=== PATIENT | male | born 1945 | race Caucasian/White ===

== ENCOUNTER → 2016-10-07 | Outpatient (CLI) | payer OTHER ==
[~2016-10-07] MED LIST: ACET-1256 PO; ACETTAB19 PO; ASPI81TA28 PO; B-CO1CAP5 PO; DOXA2TAB PO; FLAX12003 PO; FLEC50TA20 PO; METO25TA3 PO; MRP1 PO; OMEG10007 PO; PANT40TA PO; PRAV80TA2 PO
--- NOTE | 2016-10-07 09:41 | DIAGNOSTIC IMAGING REPORT ---
CERVICAL SPINE 5 VIEWS HISTORY: CERVICALGIA M54.2 COMPARISON: None. FINDINGS: The cervical spine is visualized from C1 through the superior endplate of T1. There is no fracture. No subluxation. Mild disc space narrowing at C4-C5. Moderate disc space narrowing and small endplate osteophytes at C5-C6 and C6-C7. Prevertebral soft tissues and the atlantodens interval are intact. IMPRESSION: 1. Mild to moderate degenerative disc disease within the mid to lower cervical spine. 2. No fracture or subluxation. Electronically signed by: Bony Wu M.D. 10/07/2016 9:39 AM Dictated Date/Time: 10/07/2016 9:35 AM
== END | disposition home or self-care (01) ==
LOC: C.RAD 08:37
PROVIDERS: ATTEND Family Medicine
DX: M54.2 Cervicalgia (principal)

== ENCOUNTER → 2017-08-31 | Outpatient (CLI) | payer OTHER | END | disposition home or self-care (01) | LOC: C.RDSM 10:55 | PROVIDERS: ATTEND Orthopaedic Surgery | DX: R52 Pain, unspecified (principal) ==

== ENCOUNTER → 2017-09-22 | Outpatient (CLI) | payer OTHER | END | disposition home or self-care (01) | LOC: C.PATHSPEC 17:15 | PROVIDERS: ATTEND Urology | DX: N40.1 Benign prostatic hyperplasia with lower urinary tract symptoms (principal); T19.9XXA Foreign body in genitourinary tract, part unspecified, initial encounter; X58.XXXA Exposure to other specified factors, initial encounter; N28.1 Cyst of kidney, acquired; N30.20 Other chronic cystitis without hematuria ==

== ENCOUNTER → 2017-09-30 | Outpatient (CLI) | payer OTHER ==
[~2017-09-30] MED LIST changes: -METO25TA3 PO; +METO25TA4 PO
--- NOTE | 2017-09-30 09:37 | DIAGNOSTIC IMAGING REPORT ---
ABD/PELVIS COMBO HISTORY: 72 years-old Male N40.1 Benign prostatic hyperplasia with urinary [id number] COMPARISON: CT chest 07/19/2016 TECHNIQUE: Multiple axial CT images of the abdomen and pelvis were obtained both with and without the use of 93 mL Optiray 320. Delayed postcontrast excretory phase images were also process. A dose lowering technique was used consistent with the principals of OSMIN. FINDINGS: There are multiple soft tissue attenuating solid nodules of the left lung base, largest of which measures 1.4 x 1.7 cm within the lingula abutting the fissure with adjacent nodules measuring up to 8 mm, also abutting the adjacent major fissure. These findings are unchanged from comparison study 07/19/2016. The imaged inferior cardiac chambers are unremarkable. There is no pneumatosis or pneumoperitoneum identified. 11 mm ovoid low attenuating lesion of the subserosal left hepatic lobe suggests hepatic cyst. Similar-appearing 5 mm lesion is seen within the posterior right hepatic lobe, too small to characterize however may also reflect a hepatic cyst. There is no intrahepatic biliary ductal dilation. Splenule's are again noted adjacent to the spleen. There is a soft tissue attenuating lobulated structure measuring 7.5 x 4.8 cm within the left upper abdomen interposed between the left hepatic lobe and spleen suggesting splenic tissue. Pancreas, gallbladder and adrenal glands are within normal limits. Mild nonspecific bilateral perinephric stranding. 5.9 x 5.0 cm cyst of the interpolar left kidney is noted. There is a lobulated 3.2 x 2.2 cm cystic lesion of the anterior inferior pole right kidney demonstrating thin internal septations as noted on image 181 series 5 which appear to enhance. Additional low attenuating lesions of the right kidney are seen suggesting cysts, many of which are too small to characterize. There is a 1.1 x 1.3 x 1.5 cm solid enhancing lesion of the anterior aspect interpolar right kidney as seen on image 175 series 5. No additional suspicious renal mass lesions are seen on either side. 5 mm calculus of the interpolar right kidney with additional nonobstructing punctate calculus of the superior pole right kidney. 6 mm hyperattenuating cyst of the posterior inferior pole right kidney. There is no ureteral calculi or obstructive uropathy identified. Prostate is enlarged. Soft tissue attenuation of the base of the urinary bladder suggests prostatic tissue. Mild circumferential wall thickening of the urinary bladder. No filling defects within the collecting systems or ureters. The majority of the distal left ureter is not well opacified. Aorta is normal in course and caliber moderate atherosclerotic plaquing. No bulky adenopathy identified. Small sliding-type hiatal hernia. No bowel obstruction or focal bowel wall thickening. Mild colonic diverticulosis without CT evidence of acute diverticulitis. Visualized appendix appears normal. Prior bilateral inguinal hernia repair. Soft tissues are unremarkable. Indeterminate 1.3 cm sclerotic focus of the left iliac wing on image 290 likely reflecting bone island. IMPRESSION: 1. 1.5 cm solidly enhancing lesion of the anterior interpolar right kidney . Renal cell carcinoma is the diagnosis of exclusion. 2. Bilateral renal cysts. 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 6 month follow-up recommended to further dilate. 3. Nonobstructing right-sided nephrolithiasis. No ureteral calculi or obstructive uropathy. 4. Prostamegaly with evidence of chronic bladder obstruction. Some tissue attenuation of the base of the urinary bladder suggests prostatic tissue and could be correlated with cystoscopy if of further clinical concern. 5. Splenic tissue of the left upper abdomen suggesting accessory spleen, large splenule or polysplenia again noted within the left upper abdomen with unchanged left basilar pulmonary nodules, also possibly reflecting splenic tissue. 6. Additional findings as above. The above report was generated using voice recognition software. It may contain grammatical, syntax or spelling errors. Electronically signed by: Hector Montana M.D. 09/30/2017 9:35 AM Dictated Date/Time: 09/30/2017 9:16 AM
== END | disposition home or self-care (01) ==
LOC: C.CTS 08:03
PROVIDERS: ATTEND Urology
DX: N40.1 Benign prostatic hyperplasia with lower urinary tract symptoms (principal); T19.9XXA Foreign body in genitourinary tract, part unspecified, initial encounter; N28.1 Cyst of kidney, acquired; N20.0 Calculus of kidney; X58.XXXA Exposure to other specified factors, initial encounter

== ENCOUNTER → 2017-10-20 | Outpatient (CLI) | payer OTHER ==
--- NOTE | 2017-10-20 07:52 | DIAGNOSTIC IMAGING REPORT ---
(CHEST) THORAX WITHOUT CT DOSE: 510.56 mGycm CLINICAL HISTORY: 72 years-old Male with N28.89 Renal mass, [id number]. Follow-up study in a patient with renal mass and pulmonary nodules TECHNIQUE: Multiaxial CT images of the chest were performed without contrast. A dose lowering technique was utilized adhering to the principles of ALARA. COMPARISON: CT abdomen and pelvis 09/30/2017, CT chest 07/19/2016 FINDINGS: Mildly heterogeneous thyroid with a 1.4 center low attenuating left thyroid nodule. Lobulated soft tissue attenuation containing internal calcifications again noted within the anterior mediastinum measuring up to 3.8 x 1.9 cm, previously 3.8 x 1.8 cm. No new adenopathy of the chest. The heart is within normal limits. Coronary arterial disease. No aortic aneurysm. There is no pneumothorax or pleural effusion. Mild left hemidiaphragmatic elevation redemonstrated. No lobar airspace consolidation to suggest pneumonia. No new pulmonary nodules identified. Unchanged circumscribed lobulated soft tissue attenuating nodules of the lingula, several which abuts the major fissure are again seen, largest measuring up to 1.6 cm which are unchanged from comparison studies dating back to 07/19/2016. Lobulated 7.9 cm soft tissue attenuating lesion of the left upper abdomen demonstrating same density as adjacent splenic tissue is again noted which appears unchanged. Low attenuating lesions of the kidneys are again seen including a probable cyst of the interpolar left kidney, 5.7 cm. Calculi of the interpolar right kidney are again noted. 10 mm probable cyst of the left hepatic lobe. Contracted gallbladder. Soft tissues demonstrate no acute abnormality. The bones appear intact. Multilevel degenerative changes of the spine. 3.5 cm intramuscular lipoma of the left latissimus musculature noted. IMPRESSION: 1. No acute intrathoracic abnormality identified. 2. Soft tissue lesion of the left upper abdomen again noted suggesting accessory spleen, large splenule or polysplenia with unchanged multiple solid nodules of the left lung base, also suggesting accessory splenic tissue. No new or enlarging pulmonary nodules identified. 3. Lobular partially calcified lesion of the anterior mediastinum appears unchanged from comparison measuring up to 3.8 cm. Differential considerations would include a thymic epithelial lesion, germ cell tumor or treated lymphoma. Electronically signed by: Hector Montana M.D. 10/20/2017 7:51 AM Dictated Date/Time: 10/20/2017 7:40 AM
== END | disposition home or self-care (01) ==
LOC: C.CTS 07:17
PROVIDERS: ATTEND Urology
DX: N28.89 Other specified disorders of kidney and ureter (principal)

== ENCOUNTER → 2017-11-22 | Outpatient (CLI) | payer OTHER ==
[2017-11-22 12:08] LABS: HEMATOCRIT 41.6 % (42-52); HEMOGLOBIN 14.9 g/dL (14.0-18.0); IG# 0.01 K/uL (0.00-0.02); LYMPH % 34.2 %; LYMPH ABS # 1.96 K/uL (1.2-3.4); MEAN CELL VOLUME 85.4 fL (80-100); MEAN CORPUSCULAR HEMOGLOBIN 30.6 pg (25-34); MEAN CORPUSCULAR HGB CONC 35.8 g/dl (32-36); MEAN PLATELET VOLUME 9.8 fL (7.4-10.4); MONO % 5.8 %; MONO ABS # 0.33 K/uL (0.11-0.59); NEUT % 59.8 %; NEUT ABS # 3.43 K/uL (1.4-6.5); PLATELET COUNT 168 K/uL (130-400); RED CELL DISTRIBUTION WIDTH CV 12.8 % (11.5-14.5); RED CELL DISTRIBUTION WIDTH SD 39.8 fL (36.4-46.3); WHITE BLOOD COUNT 5.73 K/uL (4.8-10.8)
[2017-11-22 12:38] LABS: ALBUMIN 4.1 gm/dl (3.4-5.0); ALT/SGPT 35 U/L (12-78); AST/SGOT 22 U/L (15-37); BLOOD UREA NITROGEN 18 mg/dl (7-18); CALCIUM 9.2 mg/dl (8.5-10.1); CARBON DIOXIDE 26 mmol/L (21-32); GLUCOSE 94 mg/dl (70-99); POTASSIUM 4.1 mmol/L (3.5-5.1); SODIUM 137 mmol/L (136-145)
[2017-11-22 12:43] LABS: ALKALINE PHOSPHATASE 88 U/L (45-117); TOTAL PROTEIN 7.6 gm/dl (6.4-8.2)
== END | disposition home or self-care (01) ==
LOC: C.LAB1850 10:34
PROVIDERS: ATTEND Internal Medicine Nephrology
DX: I48.91 Unspecified atrial fibrillation (principal); N28.1 Cyst of kidney, acquired; N28.89 Other specified disorders of kidney and ureter

== ENCOUNTER → 2017-11-23 | Outpatient (CLI) | payer OTHER ==
--- NOTE | 2017-11-23 09:38 | DIAGNOSTIC IMAGING REPORT ---
RENAL ULTRASOUND CLINICAL HISTORY: Right renal mass. Renal cyst. COMPARISON STUDY: CT of the abdomen and pelvis October 10, 2017. TECHNIQUE: Sonography of the kidneys and the urinary bladder was performed. FINDINGS: The right kidney measures 11 cm in maximal dimension and the left measures 11.4 cm. There is no hydronephrosis. Note is made of a 5.7 cm cyst within the midpole of the left kidney. Note is made of a 3 cm cystic lesion within the lower pole of the right kidney with peripheral hypoechoic focus which corresponds to the complex cystic lesion shown on CT of October 10, 2017. This remains indeterminate. The suspicious 1.5 cm enhancing midpole lesion within the right kidney shown on CT is not evident on since exam, likely due to technique. A few additional renal cysts are noted. No abnormality of the bladder was identified by sonography. IMPRESSION: 1. Nonvisualization of the 1.5 cm right mid pole renal lesion shown on CT of September 30, 2017, likely due to sonographic technique. The appearance on prior CT is highly suggestive of renal cell carcinoma. 2. 3 cm mildly complicated cyst within lower pole of the right kidney which is better depicted on prior CT. This was considered a Bosniak 2F renal cyst and a follow-up CT in March 2018 is recommended to ensure stability. 3. No hydronephrosis. Electronically signed by: Daquan Wong M.D. 11/23/2017 9:36 AM Dictated Date/Time: 11/23/2017 9:11 AM
== END | disposition home or self-care (01) ==
LOC: C.ULTR 08:29
PROVIDERS: ATTEND Internal Medicine Nephrology
DX: N28.1 Cyst of kidney, acquired (principal); N28.89 Other specified disorders of kidney and ureter; I48.91 Unspecified atrial fibrillation

== ENCOUNTER 2017-12-19 05:03 | Inpatient (IN) | payer OTHER ==
--- NOTE | 2017-12-08 07:34 | DIAGNOSTIC IMAGING REPORT ---
CHEST 2 VIEWS ROUTINE CLINICAL HISTORY: N28.89 Renal mass, preoperative chest, occasional shortness of breath and cough. COMPARISON STUDY: 12/01/2015 FINDINGS: There is mild elevation/eventration of the left hemidiaphragm. The heart is normal in size. There is no failure. There is no focal pulmonary consolidation. There are no pleural effusions. Anterior mediastinal calcifications are visualized in the lateral view. These were described in the prior CT scan dated 10/20/2017.[ IMPRESSION: Stable anterior mediastinal calcifications. No acute findings. Electronically signed by: Eddi Mena M.D. 12/08/2017 7:33 AM Dictated Date/Time: 12/08/2017 7:31 AM
[2017-12-19] VITALS (16 sets, daily range): BP systolic 122–161; BP diastolic 71–90; PULSE 61–71; TEMP 36.6–37.2; O2SAT 94–98; Ht 172.7 cm; Wt 91.0 kg
[~2017-12-19] VITALS: Ht 172.7 cm; Wt 91.0 kg
[~2017-12-19 05:03] MED LIST changes: -ACETTAB19 PO; +ASPI-391 PO; +BCTCR/30 EXT; +DICL1GEL12 TP; -DOXA2TAB PO; +FINA5TAB PO; -FLAX12003 PO; +TAMS0.4C38 PO; +TRMO2580 TOP
[2017-12-19] MEDS ORDERED: LACTATED RINGER'S 1000ML 1,000 ML IV SCH (06:00)
[2017-12-19] MEDS ORDERED: CEFAZOLIN 2000MG IV PUSH 15 ML IV SCH (06:00)
[2017-12-19] MEDS ORDERED: BUPIVACAINE 0.5 % 5 MG/1 ML MPF 30ML VIAL ONE (06:31)
[2017-12-19] MEDS ORDERED: ONDANSETRON INJ 2 MG/ML 2 ML VIAL ONE (06:36)
[2017-12-19] MEDS ORDERED: NEOSTIGMINE METHYLSULFATE 5 MG/5 ML SYR ONE (06:36)
[2017-12-19] MEDS ORDERED: GLYCOPYRROLATE INJ 0.2 MG/ML VIAL ONE (06:36)
[2017-12-19] MEDS ORDERED: LIDOCAINE HCL 2% 2 ML VIAL (20MG/ML) ONE (06:36)
[2017-12-19] MEDS ORDERED: DEXAMETHASONE SOD INJ 4 MG/ML VIAL ONE (06:36)
[2017-12-19] MEDS ORDERED: PROPOFOL IV EMULSION 10 MG/ML 20 ML VIAL ONE (06:36)
[2017-12-19] MEDS ORDERED: MIDAZOLAM HCL 1 MG/ML 2ML VIAL ONE (06:37)
[2017-12-19] MEDS ORDERED: FENTANYL CITRATE INJ 50 MCG/1 ML 2 ML VIAL ONE (06:37)
--- NOTE | 2017-12-19 06:45 | History & Physical Bridge Note ---
H&P Re-Evaluation Bridge Note: I have examined the patient, reviewed the History & Physical and in the interval since the performance of the History & Physical I have noted the following changes of clinical significance: No changes noted
[2017-12-19] MEDS ORDERED: HYDROmorphone INJ 2 MG/ML SYR/VIAL ONE (08:27)
[2017-12-19] MEDS ORDERED: EpHEDrine SULFATE INJ 50 MG/ML AMP IV PRN (08:30)
[2017-12-19] MEDS ORDERED: MoRPHine SULFATE 10 MG/ML CARP/VIAL IV PRN (08:30)
[2017-12-19] MEDS ORDERED: ATROPINE SULFATE 0.1 MG/ML 5ML SYR IV PRN (08:30)
[2017-12-19] MEDS ORDERED: ONDANSETRON INJ 2 MG/ML 2 ML VIAL IV PRN (08:30)
[2017-12-19] MEDS ORDERED: EpHEDrine SULFATE 50MG/5ML SYR ONE (08:53)
[2017-12-19] MEDS ORDERED: ROCURONIUM BROMIDE 10 MG/ML 5 ML VIAL ONE (08:53)
[2017-12-19] MEDS ORDERED: TISSEEL FIBRIN SEALANT 10ML TOP ONE (09:29)
--- NOTE | 2017-12-19 10:08 | [facility] Post Operative Brief Note ---
Immediate Operative Summary Operative Date Dec 19, 2017. Pre-Operative Diagnosis Right Renal Mass Post-Operative Diagnosis Right Renal Mass Procedure(s) Performed Laparoscopic Right Hand Assisted Nephrectomy Surgeon Dr. Anthony Ge[employer] Prospecting Permit Agent Surgeon(s) Brittanie Bangura NP Estimated Blood Loss 100 ml Findings Consistent with Post-Op Diagnosis Specimens A. Right Kidney and Mass Anesthesia Type General Complication(s) none Disposition Disposition: Recovery Room / PACU
[2017-12-19] MEDS ORDERED: TRIAMCINOLONE ACETONIDE TOP PRN (10:30)
[2017-12-19] MEDS ORDERED: MUPIROCIN 2% EXT PRN (10:30)
[2017-12-19] MEDS ORDERED: DICLOFENAC SOD 1% GEL 100 GM TUBE EXT PRN (10:30)
[2017-12-19] MEDS ORDERED: CEFAZOLIN IV 2,000 MG in DEXTROSE 5% 50ML 50 ML IV SCH (10:30)
[2017-12-19] MEDS: FENTANYL CITRATE INJ 50 MCG/1 ML 2 ML VIAL IV PRN ×4 (10:33→10:53)
[2017-12-19 10:57] LABS: HEMATOCRIT 41.6 % (42-52); HEMOGLOBIN 14.9 g/dL (14.0-18.0); MEAN CELL VOLUME 86.5 fL (80-100); MEAN PLATELET VOLUME 9.5 fL (7.4-10.4); PLATELET COUNT 149 K/uL (130-400); RED CELL DISTRIBUTION WIDTH CV 12.7 % (11.5-14.5); RED CELL DISTRIBUTION WIDTH SD 40.7 fL (36.4-46.3); WHITE BLOOD COUNT 11.56 K/uL (4.8-10.8)
[2017-12-19 11:00] LABS: MEAN CORPUSCULAR HGB CONC 35.8 g/dl (32-36)
[2017-12-19 11:16] LABS: CALCIUM 8.5 mg/dl (8.5-10.1); CREATININE 1.18 mg/dl (0.60-1.40); POTASSIUM 3.8 mmol/L (3.5-5.1)
--- NOTE | 2017-12-19 11:18 | Anesthesiology Progress Note ---
Anesthesia Post Op Note Date & Time Dec 19, 2017 at 11:18 Vital Signs Pain Intensity: 2 Vital Signs Past 12 Hours Date Time Temp Pulse Resp B/P (MAP) Pulse Ox O2 Delivery O2 Flow Rate FiO2 12/19/17 11:11 133/62 12/19/17 11:10 54 13 12/19/17 11:10 54 13 97 12/19/17 11:06 125/62 12/19/17 11:05 60 13 96 12/19/17 11:05 61 13 12/19/17 11:02 37.0 58 16 122/65 (85) 98 Nasal Cannula 2 12/19/17 11:01 122/65 12/19/17 11:00 59 11 97 12/19/17 11:00 59 11 12/19/17 10:59 118/65 12/19/17 10:55 60 12 12/19/17 10:55 61 12 99 12/19/17 10:54 54 11 97 12/19/17 10:54 54 11 97 12/19/17 10:54 49 11 12/19/17 10:54 49 11 12/19/17 10:51 133/69 12/19/17 10:51 133/69 12/19/17 10:49 56 12 99 12/19/17 10:49 53 12 12/19/17 10:49 53 12 12/19/17 10:49 56 12 99 12/19/17 10:48 53 10 99 12/19/17 10:48 53 10 12/19/17 10:46 140/78 12/19/17 10:43 56 13 12/19/17 10:43 55 13 98 12/19/17 10:41 132/75 12/19/17 10:38 57 17 12/19/17 10:38 57 17 100 12/19/17 10:36 158/78 12/19/17 10:33 52 9 12/19/17 10:33 55 9 100 12/19/17 10:31 138/100 12/19/17 10:28 55 17 99 12/19/17 10:28 54 17 12/19/17 10:27 161/71 12/19/17 10:24 148/82 12/19/17 10:23 57 17 12/19/17 10:23 36.5 57 16 148/82 (114) 97 Oxymask 10 12/19/17 10:23 59 17 98 12/19/17 05:44 98 Room Air 12/19/17 05:38 36.6 63 20 161/83 Notes Mental Status: alert / awake / arousable, participated in evaluation Pt Amnestic to Procedure: Yes Nausea / Vomiting: adequately controlled Pain: adequately controlled Airway Patency, RR, SpO2: stable & adequate BP & HR: stable & adequate Hydration State: stable & adequate Anesthetic Complications: no major complications apparent
[2017-12-19] MEDS ORDERED: ACETAMINOPHEN 500 MG TAB PO PRN (13:30)
[2017-12-19] MEDS: HYDROmorphone INJ 2 MG/ML SYR/VIAL IV PRN (13:33)
[2017-12-19] MEDS: LACTATED RINGER'S 1000ML 1,000 ML IV SCH ×2 (13:37→21:25)
[2017-12-19] MEDS: ACETAMINOPHEN 500 MG TAB PO SCH ×2 (14:06→19:25)
--- NOTE | 2017-12-19 14:22 | [facility] Operative Report ---
Operative Report Operative Date Dec 19, 2017. Pre-Operative Diagnosis Right Renal Mass. Right Complex Renal Cysts Post-Operative Diagnosis Same Procedure(s) Performed Radical Hand Assist Right Nephrectomy Surgeon Gino Vector Control Specialist Surgeon(s) EVA Bangura Estimated Blood Loss 100 Findings Kidney with multiple lesions including solid suspicious mass Specimens Radical Right Nephrectomy Drains None Anesthesia Type General Complication(s) none Disposition Recovery Room / PACU Indications Patient found to have solid suspicious renal mass with two complex renal cysts. Discussed options and risks and benefits. Patient has previous history of significant trauma. Patient agrees to proceed. Description of Procedure The patient was brought to the operative suite and placed under general endotracheal intubation anesthesia in the supine position. The patient was transferred to the lateral position. At this point, the patient prepped and draped in the usual sterile fashion and a timeout was completed. Preoperative antibiotics of Ancef 2 grams had been given. FLOYD's and SCD's were placed on the patient's lower extremities. A catheter had been placed using sterile technique prior to draping. With the time out completed the patient was marked and a Veress needle was placed to insufflate the abdomen. Prior to connecting the gas, the needle was aspirated and flushed. No blood or other fluid or concern were noted. The Abdomen was insufflated with low pressure CO2 with out issues to 12 mmHg. The skin was anesthetized and an incision was made at the skin. The camera port was placed and the peritoneum was entered. A camera was placed. The abdominal cavity inspected. No concerning features were noted. Great care was taken to inspect the entire abdomen. No significant scar tissues or major adhesions were found. At this point, the skin was marked for additional port placement. A howe incision was planned in the lower quadrant approximately 6 cm in length. The skin was anesthetized down to fascia and an incision was made. The subcutaneous tissues were dissected with cautery. The fascia was examined and opened and the muscle fibers parted. The Peritoneum was then entered. The Gel Port was selected and placed to allow hand assistance. The abdomen was then resufflated. The marked ports were then anesthetized at the skin level. The 12 mm working port and 5 mm port were placed under direct visualization. Brittanie Bangura was integral in port placement, camera utilization, and the major jorgensen portions of the procedure. She remained in sterile attire and then proceeded to assist the remainder of the case. Dr. Stevenson Moreira was readily available for assistance during jorgensen portions of the proceeding procedure. At this point, the right colon was mobilized medially and the retroperitoneum entered. A harmonic device was used for the majority of instrument dissection. The liver was dissected free from some minor attachments to the peritoneum. A grasper was placed for liver retraction. Attention was then taken back to the inferior portion of the retroperitoneum. With the colon safely retracted, the ureter and gonadal vein was identified. The ureter was isolated and dissection was taken towards the hilum. The gonadal vein was and taken to its junction with the vena cava. The Renal vein and artery were identified at the hilum. It was noted that the renal artery branched into three larger branches. These branches were identified. The hilum was fully dissected and exposed. The vessels were isolated and a 45mm stapling device with a vascular load was selected. This was taken to the hilum and the hilum was fully isolated and stapled. The device was removed and the renal artery and vein were assessed. No bleeding or other areas of concern were noted. Some small posterior attachments were then freed with the harmonic device. The kidney was further mobilize after opening the anterior peritoneum over the kidney. The kidney was retracted inferiorly. The adrenal was spared and the kidney freed on the superior, posterior, and lateral with Gerota fascia maintained. The ureter was followed down into the pelvis. The tissue was freed and the 45 stapler was used to transect the ureter and the surrounding retroperitoneal fat. The kidney was grasped and removed through the hand port. This was sent for pathologic analysis after quick inspection. The entire dissection bed was inspected.Hemostatic agent was placed in the region of the hilar attachments. No bleeding or areas of concern were found. The vein and artery stump was found to be without issues. No areas of injury or bleeding was noted. The entire area was inspected after placement of the hemostatic agents. The liver was inspected and found to be clear of issues. The entire dissection space was inspected one final time. No bleeding or injuries or areas of concern were noted. No masses, lesions, tumor, enlarged nodes, or other concerning features were noted. The port sites were all assessed laparoscopically. The 10 mm and 12 mm ports were removed and closed with the Scott-Branch device and a 2-0 Vicryl suture. The skin was closed with a running Monocryl suture. The gel port was removed. All counts for needles, instruments, sponges, and equipment were correct x 2. A 1-0 Vicryl suture was used to close the peritoneum in a running fashion. The internal oblique fascia was closed with a running 1-0 Vicryl suture. A running 1-0 PDS suture was used to close the external oblique fascia up to the rectus sheath. The skin at each site was closed with a running Monocryl suture. The area was cleaned and glue placed on each incision. The patient was cleaned and bandaged. The patient was moved into the supine position and further cleaned, aroused from anesthesia, and transferred to the pacu in stable condition having tolerated the procedure well with no complications. I was present and participated in all aspects of the procedure. Counts were correct x 2 at the end of the procedure. The patient will be monitored in the PACU until transferred. Will be admitted to be monitored after the procedure. Will follow closely. I attest to the content of the Intraoperative Record and any orders documented therein. Any exceptions are noted below.
[2017-12-19] MEDS: CEFAZOLIN IV 2,000 MG in SYRINGE 0 ML IV SCH ×2 (15:16→23:57)
[2017-12-19] MEDS: OXYCODONE/ACETAMINOPHEN 7.5-325 TAB PO PRN ×2 (17:25→21:22)
[2017-12-19] MEDS: DOCUSATE SODIUM 100 MG CAP PO SCH (21:15)
[2017-12-19] MEDS: TAMSULOSIN HCL 0.4 MG CAP PO SCH (21:16)
[2017-12-19] MEDS: FLECAINIDE ACETATE 100 MG TAB PO SCH (21:17)
[2017-12-19] MEDS: FINASTERIDE 5 MG TAB PO SCH (21:17)
[2017-12-19] MEDS: PRAMIPEXOLE DIHYDROCHLORIDE 0.5 MG TAB PO SCH (21:17)
[2017-12-19] MEDS: PANTOprazole SOD 40 MG TAB PO SCH (21:17)
[2017-12-19] MEDS: PRAVASTATIN SOD 40 MG TAB PO SCH (21:17)
[2017-12-19] MEDS: METOPROLOL SUCC 25MG EXT REL TAB PO SCH (21:18)
[2017-12-19] MEDS: ONDANSETRON INJ 2 MG/ML 2 ML VIAL IV PRN (21:22)
[2017-12-20] VITALS (7 sets, daily range): BP systolic 103–153; BP diastolic 64–83; PULSE 50–68; TEMP 36.5–37.3; O2SAT 92–97
[2017-12-20] MEDS: OXYCODONE/ACETAMINOPHEN 7.5-325 TAB PO PRN ×3 (01:10→20:02)
[2017-12-20] MEDS: ACETAMINOPHEN 500 MG TAB PO SCH ×4 (01:13→20:00)
[2017-12-20] MEDS: HYDROmorphone INJ 2 MG/ML SYR/VIAL IV PRN ×2 (03:29→11:01)
[2017-12-20] MEDS: LACTATED RINGER'S 1000ML 1,000 ML IV SCH ×3 (05:01→22:44)
[2017-12-20 07:05] LABS: HEMATOCRIT 36.4 % (42-52); HEMOGLOBIN 12.5 g/dL (14.0-18.0); IG# 0.02 K/uL (0.00-0.02); LYMPH ABS # 1.51 K/uL (1.2-3.4); MEAN CELL VOLUME 87.9 fL (80-100); MEAN CORPUSCULAR HEMOGLOBIN 30.2 pg (25-34); MEAN CORPUSCULAR HGB CONC 34.3 g/dl (32-36); MEAN PLATELET VOLUME 9.6 fL (7.4-10.4); MONO % 9.1 %; MONO ABS # 0.81 K/uL (0.11-0.59); NEUT % 73.7 %; NEUT ABS # 6.56 K/uL (1.4-6.5); PLATELET COUNT 155 K/uL (130-400); RED CELL DISTRIBUTION WIDTH CV 13.1 % (11.5-14.5); RED CELL DISTRIBUTION WIDTH SD 42.5 fL (36.4-46.3)
--- NOTE | 2017-12-20 07:29 | DIAGNOSTIC IMAGING REPORT ---
KUB CLINICAL HISTORY: 72 years-old Male presenting with Post-op. TECHNIQUE: Single supine view of the abdomen was obtained. COMPARISON: CT from 09/30/2017. FINDINGS: Mild gaseous distention of stomach and large bowel. No convincing evidence of bowel obstruction. Pneumoperitoneum suggested in the right upper quadrant, which is likely expected in the postoperative setting. Allowing for bowel gas and stool, no calcifications to suggest nephrolithiasis. Few coil surgical alanis evident in the pelvis likely indicating prior hernia repair. Mild degenerative change in the lower lumbar spine. Left basilar opacity. IMPRESSION: 1. Suggestion of pneumoperitoneum, which is expected in the postoperative setting. No bowel obstruction. Mild gaseous distention of bowel may indicate colonic ileus. Electronically signed by: Arturo Scott M.D. 12/20/2017 7:28 AM Dictated Date/Time: 12/20/2017 7:24 AM
--- NOTE | 2017-12-20 07:32 | Anesthesiology Progress Note ---
Anesthesia Post Op Note Date & Time December 20, 2017 at 07:32 Vital Signs Pain Intensity: 3 Vital Signs Past 12 Hours Date Time Temp Pulse Resp B/P (MAP) Pulse Ox O2 Delivery O2 Flow Rate FiO2 12/20/17 07:08 36.5 50 16 127/75 (92) 97 2.0 12/20/17 04:00 Nasal Cannula 2.0 12/20/17 03:41 36.9 56 18 131/76 (94) 95 2.0 12/20/17 00:10 37.3 54 18 103/72 (82) 93 12/19/17 23:59 Nasal Cannula 2.0 12/19/17 20:03 95 Nasal Cannula 2.0 Notes Mental Status: alert / awake / arousable Pt Amnestic to Procedure: Yes Nausea / Vomiting: improving with treatment Pain: adequately controlled Airway Patency, RR, SpO2: stable & adequate BP & HR: stable & adequate Hydration State: stable & adequate
[2017-12-20 07:41] LABS: CALCIUM 8.1 mg/dl (8.5-10.1); CREATININE 1.66 mg/dl (0.60-1.40); POTASSIUM 3.9 mmol/L (3.5-5.1)
[2017-12-20] MEDS: CEFAZOLIN IV 2,000 MG in SYRINGE 0 ML IV SCH (07:59)
[2017-12-20] MEDS: DOCUSATE SODIUM 100 MG CAP PO SCH ×2 (08:00→20:39)
[2017-12-20] MEDS: PANTOprazole SOD 40 MG TAB PO SCH ×2 (08:00→20:39)
[2017-12-20] MEDS: FLECAINIDE ACETATE 100 MG TAB PO SCH ×2 (08:00→20:42)
[2017-12-20] MEDS: ONDANSETRON INJ 2 MG/ML 2 ML VIAL IV PRN (11:45)
--- NOTE | 2017-12-20 12:26 | Clinical Documentation Query ---
CLINICAL DOCUMENTATION QUERY Dr. WEBB, In your clinical opinion is this patient being managed for: ( ) Acute kidney injury ( ) Not Agree ( ) Other explanation of clinical findings (Please Explain. If no explanation given, this would be considered a no response.) ( ) Unable to determine ( ) Need to Discuss (Please call CDS via extension or qliq. If no interaction occurs this is considered a no response.) The medical record reflects the following clinical findings, treatment, and risk factors. Clinical Indicators: 72 yo male presenting with R renal mass and renal cyst. Baseline Cr 1.18 which has trended up to Cr 1.66 Treatment: IV fluids, serial PRP's Risk Factors: nephrectomy Please clarify and document your clinical opinion in the progress notes and discharge summary. Terms such as "probable", "suspected", "likely", "questionable", "possible", or "still to be ruled out" are acceptable. IF IN AGREEMENT, YOU MUST DOCUMENT ABOVE DIAGNOSTIC STATEMENT IN DAILY PROGRESS NOTES AND DISCHARGE SUMMARY. This document is not part of the patient's record. Thank You, Sofi Alford, RN [phone]
--- NOTE | 2017-12-20 13:42 | Progress Note ---
Subjective Date of Service: December 20, 2017. Subjective Pt evaluation today including: conversation w/ patient, chart review, lab review 72 yo male s/p right HALN. Pt reports some incisional pain and nausea this morning. Denies vomiting. Tolerating clear liquids. + belching. Denies flatus or BM. KUB this morning showing some gaseous distention. Jaramillo catheter removed 45min ago. Pt has not yet voided. I&Os acceptable. H&H 12.5 and 36.4 this morning. Cr is 1.66. Problem List Medical Problems: (1) Atrial fibrillation Status: Acute Review of Systems Constitutional: No fever, No chills Respiratory: No shortness of breath Cardiac: No chest pain Abdomen: + see HPI, + pain, + nausea, No vomiting Male : No hematuria Heme: No abnormal bleeding/bruising Objective Vital Signs Date Time Temp Pulse Resp B/P (MAP) Pulse Ox O2 Delivery O2 Flow Rate FiO2 12/20/17 12:13 37.0 68 18 129/64 (85) 96 12/20/17 12:00 Room Air 12/20/17 08:00 Room Air 12/20/17 07:08 36.5 50 16 127/75 (92) 97 2.0 12/20/17 04:00 Nasal Cannula 2.0 12/20/17 03:41 36.9 56 18 131/76 (94) 95 2.0 12/20/17 00:10 37.3 54 18 103/72 (82) 93 12/19/17 23:59 Nasal Cannula 2.0 12/19/17 20:03 95 Nasal Cannula 2.0 12/19/17 19:16 37.2 66 18 140/71 (94) 95 2.0 12/19/17 17:00 36.6 66 20 154/77 (102) 97 Nasal Cannula 2.0 12/19/17 16:19 95 Nasal Cannula 2.0 12/19/17 16:00 36.7 68 18 144/79 (100) 94 Nasal Cannula 2.0 12/19/17 15:00 66 20 129/74 (92) 95 Nasal Cannula 2.0 12/19/17 14:30 65 20 122/71 (88) 94 Nasal Cannula 2.0 12/19/17 14:00 68 20 137/80 (99) 96 Nasal Cannula 2.0 Physical Exam General Appearance: no apparent distress Eyes: normal inspection ENT: hearing grossly normal Neck: no JVD Respiratory/Chest: no respiratory distress, no accessory muscle use Cardiovascular: no JVD Abdomen: + pertinent finding (abdominal incisions c/d/i) Extremities: normal inspection Neurologic/Psychiatric: alert, normal mood/affect, oriented x 3 Skin: normal color Laboratory Results Last 24 Hours Test 12/20/17 06:30 White Blood Count 8.90 K/uL Red Blood Count 4.14 M/uL Hemoglobin 12.5 g/dL Hematocrit 36.4 % Mean Corpuscular Volume 87.9 fL Mean Corpuscular Hemoglobin 30.2 pg Mean Corpuscular Hemoglobin Concent 34.3 g/dl Platelet Count 155 K/uL Mean Platelet Volume 9.6 fL Neutrophils (%) (Auto) 73.7 % Lymphocytes (%) (Auto) 17.0 % Monocytes (%) (Auto) 9.1 % Eosinophils (%) (Auto) 0.0 % Basophils (%) (Auto) 0.0 % Neutrophils # (Auto) 6.56 K/uL Lymphocytes # (Auto) 1.51 K/uL Monocytes # (Auto) 0.81 K/uL Eosinophils # (Auto) 0.00 K/uL Basophils # (Auto) 0.00 K/uL RDW Standard Deviation 42.5 fL RDW Coefficient of Variation 13.1 % Immature Granulocyte % (Auto) 0.2 % Immature Granulocyte # (Auto) 0.02 K/uL Sodium Level 137 mmol/L Potassium Level 3.9 mmol/L Chloride Level 105 mmol/L Carbon Dioxide Level 26 mmol/L Anion Gap 6.0 mmol/L Blood Urea Nitrogen 17 mg/dl Creatinine 1.66 mg/dl Est Creatinine Clear Calc Drug Dose 44.7 ml/min Estimated GFR () 47.3 Estimated GFR (Non- 40.9 BUN/Creatinine Ratio 10.0 Random Glucose 115 mg/dl Calcium Level 8.1 mg/dl Assessment and Plan POD #1 s/p right HALN. AFVSS. Pt clinically stable. No cardiac events overnight. Will transfer to med/surg. TOV in process. Advance to a mechanical soft diet as tolerated for dinner. Encourage use of IS. Encourage ambulation to hallway. Possible d/c home tomorrow if tolerating PO, ambulating without difficulty, labs stable, and pain controlled.
[2017-12-20] MEDS ORDERED: CLC100 PO ×2 (13:44→13:58)
[2017-12-20] MEDS ORDERED: OXYC7.5T62 PO ×2 (13:44→13:58)
--- NOTE | 2017-12-20 13:45 | Discharge Instructions ---
Discharge Instructions Date of Service December 20, 2017. Admission Reason for Admission: Renal Mass,N28.9,N28.89 Discharge Discharge Diagnosis / Problem: Right renal mass Discharge Goals Goal(s): Decrease discomfort, Increase independence, Improve disease control, Improve nutritional status, Therapeutic intervention Activity Recommendations Activity Limitations: per Instructions/Follow-up section Shower/Bathe: tomorrow 1. Do not lift >15lbs x 6 weeks. 2. No heavy exercise x 6 weeks. You may engage in light activity such as walking and stairs as tolerated. 3. Do not drive x [address] while taking narcotics. 4. Follow-up as scheduled. Please call our office at [phone] if you need to reschedule for any reason. 5. You may resume taking Fish Oil and Excedrin in 10 days. . . Current Hospital Diet Patient's current hospital diet: Regular Diet Discharge Diet Recommended Diet: Regular Diet Procedures Procedures Performed: Radical Hand Assist Right Nephrectomy Pending Studies Studies pending at discharge: yes List of pending studies: right kidney pathology Medical Emergencies . Who to Call and When: Medical Emergencies: If at any time you feel your situation is an emergency, please call 911 immediately. . Non-Emergent Contact Non-Emergency issues call your: Urologist Call Non-Emergent contact if: temperature is above 101.5, your pain is not controlled, your pain is worsening, your pain is unusual for you, your pain is concerning you, wound has increased drainage, wound has increased redness, wound has increased pain, you have any medication questions . . "Provider Documentation" section prepared by Brittanie Bangura. . [place] Drug Monitoring Program Search Results: patient reviewed within database, no issues identified
[2017-12-20] MEDS: METOPROLOL SUCC 25MG EXT REL TAB PO SCH (20:39)
[2017-12-20] MEDS: PRAMIPEXOLE DIHYDROCHLORIDE 0.5 MG TAB PO SCH (20:40)
[2017-12-20] MEDS: PRAVASTATIN SOD 40 MG TAB PO SCH (20:41)
[2017-12-20] MEDS: FINASTERIDE 5 MG TAB PO SCH (20:41)
[2017-12-20] MEDS: TAMSULOSIN HCL 0.4 MG CAP PO SCH (20:41)
[2017-12-21] MEDS: OXYCODONE/ACETAMINOPHEN 7.5-325 TAB PO PRN (01:11)
[2017-12-21] MEDS: ACETAMINOPHEN 500 MG TAB PO SCH ×2 (01:25→07:16)
[2017-12-21] MEDS: LACTATED RINGER'S 1000ML 1,000 ML IV SCH ×2 (05:17→13:30)
[2017-12-21 07:25] LABS: BASO % 0.1 %; BASO ABS # 0.01 K/uL (0-0.2); HEMATOCRIT 36.3 % (42-52); HEMOGLOBIN 12.9 g/dL (14.0-18.0); IG# 0.01 K/uL (0.00-0.02); LYMPH % 18.8 %; LYMPH ABS # 1.54 K/uL (1.2-3.4); MEAN CELL VOLUME 88.1 fL (80-100); MEAN CORPUSCULAR HEMOGLOBIN 31.3 pg (25-34); MEAN CORPUSCULAR HGB CONC 35.5 g/dl (32-36); MEAN PLATELET VOLUME 9.5 fL (7.4-10.4); MONO % 6.9 %; MONO ABS # 0.57 K/uL (0.11-0.59); NEUT % 74.1 %; NEUT ABS # 6.08 K/uL (1.4-6.5); PLATELET COUNT 124 K/uL (130-400); RED CELL DISTRIBUTION WIDTH CV 12.8 % (11.5-14.5); RED CELL DISTRIBUTION WIDTH SD 41.3 fL (36.4-46.3); WHITE BLOOD COUNT 8.21 K/uL (4.8-10.8)
[2017-12-21 07:53] LABS: CALCIUM 8.2 mg/dl (8.5-10.1); CREATININE 1.58 mg/dl (0.60-1.40); POTASSIUM 3.7 mmol/L (3.5-5.1)
[2017-12-21 08:06] VITALS: BP 156/82; PULSE 60; TEMP 37; O2SAT 93
--- NOTE | 2017-12-21 08:27 | Progress Note ---
Subjective Date of Service: December 21, 2017. Subjective Pt evaluation today including: conversation w/ patient, physical exam, chart review, lab review, review of studies Pain: Tolerated Doing well. Ambulating. Pain controlled. Tolerating diet. IV heplocked. NO major issues. Jaramillo removed and patient voiding. NO major concerns. Problem List Medical Problems: (1) Atrial fibrillation Status: Acute Review of Systems All Other Systems: Reviewed and Negative Objective Vital Signs Date Time Temp Pulse Resp B/P (MAP) Pulse Ox O2 Delivery O2 Flow Rate FiO2 12/21/17 08:06 37.0 60 18 156/82 (106) 93 Room Air 12/20/17 23:30 36.7 62 16 147/75 (99) 92 Room Air 12/20/17 23:26 Room Air 12/20/17 20:38 52 92 Room Air 12/20/17 16:00 Room Air 12/20/17 15:30 36.9 51 18 153/83 (106) 92 Room Air 12/20/17 12:13 37.0 68 18 129/64 (85) 96 12/20/17 12:00 Room Air Physical Exam General Appearance: WD/WN, no apparent distress Eyes: normal inspection ENT: normal ENT inspection Neck: no JVD Respiratory/Chest: no respiratory distress, no accessory muscle use Cardiovascular: regular rate, rhythm Abdomen: soft (Wound: Clean, dry, intact. ), + distended Extremities: normal range of motion, non-tender, normal inspection, no pedal edema, no calf tenderness Neurologic/Psychiatric: asparagus buncher II-XII nml as tested, no motor/sensory deficits, alert, normal mood/affect, oriented x 3 Skin: normal color, warm/dry, no rash Lymphatic: no adenopathy Laboratory Results Last 24 Hours Test 12/21/17 06:59 White Blood Count 8.21 K/uL Red Blood Count 4.12 M/uL Hemoglobin 12.9 g/dL Hematocrit 36.3 % Mean Corpuscular Volume 88.1 fL Mean Corpuscular Hemoglobin 31.3 pg Mean Corpuscular Hemoglobin Concent 35.5 g/dl Platelet Count 124 K/uL Mean Platelet Volume 9.5 fL Neutrophils (%) (Auto) 74.1 % Lymphocytes (%) (Auto) 18.8 % Monocytes (%) (Auto) 6.9 % Eosinophils (%) (Auto) 0.0 % Basophils (%) (Auto) 0.1 % Neutrophils # (Auto) 6.08 K/uL Lymphocytes # (Auto) 1.54 K/uL Monocytes # (Auto) 0.57 K/uL Eosinophils # (Auto) 0.00 K/uL Basophils # (Auto) 0.01 K/uL RDW Standard Deviation 41.3 fL RDW Coefficient of Variation 12.8 % Immature Granulocyte % (Auto) 0.1 % Immature Granulocyte # (Auto) 0.01 K/uL Sodium Level 137 mmol/L Potassium Level 3.7 mmol/L Chloride Level 103 mmol/L Carbon Dioxide Level 29 mmol/L Anion Gap 5.0 mmol/L Blood Urea Nitrogen 16 mg/dl Creatinine 1.58 mg/dl Est Creatinine Clear Calc Drug Dose 47.0 ml/min Estimated GFR () 50.3 Estimated GFR (Non- 43.4 BUN/Creatinine Ratio 10.0 Random Glucose 102 mg/dl Calcium Level 8.2 mg/dl Assessment and Plan 1. POD2 s/p Radical Right Nephrectomy (Lap hand assist) 2. LC on CKD with solitary kidney Patient ambulating. Doing well. No major issues. Using IS. NO pain control issues. Voiding without problems. Tolerating diet. Dicussed post op care and discharge planning.
--- NOTE | 2017-12-21 08:30 | Discharge Summary ---
Discharge Summary Date of Service December 21, 2017. Admission Date/Reason Dec 19, 2017 at 10:26 Renal Mass,N28.9,N28.89. Discharge Date/Disposition December 21, 2017 Home Diagnosis Principal Diagnosis: 1. Right Renal Mass Secondary Diagnoses/Problems: 1. A Fib 2. LC on CKD Procedure(s) Performed Radical Right Hand Assist Laparoscopic Nephrectomy. Medication Reconciliation See List Admission Physical Exam As per Admitting History & Physical. Hospital Course Patient was admitted and underwent Radical nephrectomy. Tolerated the procedure well without issues or complications. Postoperatively patient was started on diet and observed. Increased activity. Ambulated without issues. NO major issues or concerns. Jaramillo removed POD1. Was able to void late in day on POD1. Increased diet. Improved overall. On POD2 patient now ambulating. Tolerating diet. Pain is controlled on oral medications. Ready for discharge with close follow up and plans in place. Discharge Instructions Please refer to the electronic Patient Visit Report (Discharge Instructions) for additional information.
[2017-12-21 08:49] VITALS: O2SAT 93
[2017-12-21 09:11] VITALS: BP 156/82; PULSE 60; TEMP 37; O2SAT 93
[2017-12-21] MEDS: PANTOprazole SOD 40 MG TAB PO SCH (09:41)
[2017-12-21] MEDS: DOCUSATE SODIUM 100 MG CAP PO SCH (09:41)
[2017-12-21] MEDS: FLECAINIDE ACETATE 100 MG TAB PO SCH (09:41)
== END 2017-12-21 13:50 | disposition home or self-care (01) | DRG 660 ==
LOC: C.ACU 05:03 → C.2T 10:26 → ENRESERV 11:50 → C.MSW 12-20 15:52
PROVIDERS: ADMIT Urology; ATTEND Urology
PROC: 0TT00ZZ Resection of Right Kidney, Open Approach (ICD-10-PCS; principal; 2017-12-19 07:00)
DX: N28.89 Other specified disorders of kidney and ureter (principal); Q61.02 Congenital multiple renal cysts; I48.91 Unspecified atrial fibrillation; N17.9 Acute kidney failure, unspecified; N18.9 Chronic kidney disease, unspecified; K21.9 Gastro-esophageal reflux disease without esophagitis; E78.5 Hyperlipidemia, unspecified; N40.0 Benign prostatic hyperplasia without lower urinary tract symptoms; G25.81 Restless legs syndrome; L40.9 Psoriasis, unspecified; M19.90 Unspecified osteoarthritis, unspecified site; G47.33 Obstructive sleep apnea (adult) (pediatric); E66.9 Obesity, unspecified; Z68.30 Body mass index [BMI] 30.0-30.9, adult; Z99.89 Dependence on other enabling machines and devices; Z87.891 Personal history of nicotine dependence; Z79.82 Long term (current) use of aspirin; Z79.899 Other long term (current) drug therapy

== ENCOUNTER → 2018-03-23 | Outpatient (CLI) | payer OTHER ==
[~2018-03-23] MED LIST changes: -ASPI-391 PO; +CLC100 PO; -OMEG10007 PO; +OXYC7.5T62 PO
--- NOTE | 2018-03-23 06:57 | DIAGNOSTIC IMAGING REPORT ---
(CHEST) THORAX WITHOUT CT DOSE: 1095.86 mGy.cm HISTORY: C64.9 Renal cell [id number] TECHNIQUE: Multiaxial CT images of the chest were performed without contrast. A dose lowering technique was utilized adhering to the principles of ALARA. COMPARISON: 10/20/2017 FINDINGS: Lungs remain clear. Nodular densities at left lung base are unchanged. Calcified mediastinal process unchanged as well. No evidence for new interval or progressive nodularity. No focal infiltrate. IMPRESSION: 1. Stable unchanged CT of the chest. 2. Stable anterior mediastinal calcified nodules as well as stable left basilar nodularity. The above report was generated using voice recognition software. It may contain grammatical, syntax or spelling errors. Electronically signed by: Adam Sun M.D. 03/23/2018 6:56 AM Dictated Date/Time: 03/23/2018 6:52 AM
--- NOTE | 2018-03-23 07:12 | DIAGNOSTIC IMAGING REPORT ---
ABDOMEN AND PELVIS CT WITHOUT CONTRAST HISTORY: Follow-up study in a patient with renal cell carcinoma. RENAL CELL CARCINOMA TECHNIQUE: Multiaxial CT images of the abdomen and pelvis were performed without contrast. A dose lowering technique was utilized adhering to the principles of ALARA. COMPARISON STUDY: CT chest of same day, CT chest 10/20/2017, CT abdomen and pelvis 09/30/2017. FINDINGS: Solid nodules about the left lung base adjacent to the inferior aspect of the major fissure redemonstrated measuring up to 1.7 cm are stable and suggest accessory splenic tissue. Mild left hemidiaphragmatic elevation. Right lung base is clear. No pneumatosis or pneumoperitoneum. Imaged inferior cardiac chambers are unremarkable. Contracted gallbladder. 11 mm hypodense lesion of the left hepatic lobe redemonstrated suggesting probable hepatic cyst. Hypodense 5 mm lesion of the posterior right hepatic lobe is too small to characterize however also likely reflects a cyst. No intrahepatic biliary ductal dilation. Lobulated soft tissue attenuating lesion of the left upper abdomen measuring 7.9 x 4.5 cm redemonstrated suggesting accessory splenic tissue. The spleen, adrenal glands and pancreas are unremarkable. 5.4 x 4.2 cm cyst of the interpolar left kidney. Mild left-sided perinephric stranding. Postoperative changes from interval right nephrectomy without focal abnormality or drainable fluid collection within the right nephrectomy bed. No left-sided urolith or obstructive uropathy. Mildly enlarged prostate. Bladder demonstrates mild wall thickening. The aorta demonstrates mild calcification without aneurysm. IVC is within normal limits. There are no pathologically enlarged lymph nodes identified. There is no bowel obstruction or focal bowel wall thickening. Colonic diverticulosis without diverticulitis. No ascites or mesenteric inflammatory changes. Moderate formed stool throughout the colon. The colon is noted anterior to the right hepatic lobe. Terminal ileum is unremarkable. Soft tissues are unremarkable. Bones appear to be intact. Ill-defined increased sclerosis about the posterior right iliac bone noted. Unchanged 1.3 cm sclerotic focus of the left iliac bone, image 290 series 7. No definite evidence of bony metastasis. Multilevel intervertebral disc space narrowing with spondylitic spurring and facet arthrosis. IMPRESSION: 1. Postoperative changes from interval right-sided nephrectomy without focal lesion or drainable fluid collection about the right nephrectomy bed. 2. No adenopathy or evidence of metastatic disease on this noncontrast exam. 3. Colonic diverticulosis without diverticulitis. 4. Prostamegaly with mild wall thickening of the bladder, possibly reflecting sequela of chronic bladder outlet obstruction. Correlate with urinalysis. 5. Splenic tissue of the left upper abdomen appears unchanged suggesting accessory spleen, large splenule or polysplenia with unchanged left basilar pulmonary nodules, also possibly reflecting splenic tissue. Electronically signed by: Hector Montana M.D. 03/23/2018 7:11 AM Dictated Date/Time: 03/23/2018 6:56 AM
== END | disposition home or self-care (01) ==
LOC: C.CTS 06:32
PROVIDERS: ATTEND Urology
DX: C64.9 Malignant neoplasm of unspecified kidney, except renal pelvis (principal)